=== PATIENT | female | born 1965 | race Caucasian/White ===

== ENCOUNTER 2017-04-29 07:19 | Outpatient (CLI) | payer OTHER ==
[2013-05-11 09:04] VITALS: BP 114/67
[2017-04-29 07:58] LABS: BASOPHILS % 0.8 (0.0-1.5); EOSINOPHILS % 3.7 % (0.0-6.8); MEAN CORPUSCULAR HEMOGLOBIN 32.7 pg (28.0-34.0); MEAN CORPUSCULAR VOLUME 94.2 fl (80.0-100.0); NEUTROPHILS # 3.3 # k/uL (1.4-7.7)
[2017-04-29 08:18] LABS: eGFR (African) > 60; eGFR (Non-African) > 60
[2017-04-29 20:41] LABS: IRON SERUM 124 ug/dL (37-145)
== END 2017-04-29 07:20 ==
LOC: LAB 07:19
PROVIDERS: ATTEND Nurse Practitioner Family
DX: E11.8 Type 2 diabetes mellitus with unspecified complications (principal); I10 Essential (primary) hypertension; R53.1 Weakness; D64.9 Anemia, unspecified; Z79.899 Other long term (current) drug therapy
CPT/HCPCS: 36415; 80053; 80061; 82607; 83036; 83540; 84439; 84443; 85025

== ENCOUNTER 2017-11-17 07:21 | Outpatient (CLI) | payer OTHER ==
[2013-05-11 09:04] VITALS: BP 114/67
[2017-11-17 08:39] LABS: BASOPHILS % 0.7 (0.0-1.5); EOSINOPHILS % 5.5 % (0.0-6.8); MEAN CORPUSCULAR HEMOGLOBIN 32.1 pg (28.0-34.0); MONOCYTES % 3.6 % (0.0-11.0); NEUTROPHILS # 3.4 # k/uL (1.4-7.7)
[2017-11-17 08:49] LABS: eGFR (African) > 60; eGFR (Non-African) > 60
[2017-11-17 19:41] LABS: IRON SERUM 89 ug/dL (37-145)
== END 2017-11-17 07:22 ==
LOC: LAB 07:21
PROVIDERS: ATTEND Nurse Practitioner Family
DX: E03.9 Hypothyroidism, unspecified (principal); E11.8 Type 2 diabetes mellitus with unspecified complications; R53.1 Weakness; D64.9 Anemia, unspecified; Z79.899 Other long term (current) drug therapy
CPT/HCPCS: 36415; 80053; 80061; 82607; 82728; 82746; 83036; 83540; 84439; 84443; 85025; 86140

== ENCOUNTER 2018-09-10 15:04 | Outpatient (CLI) | payer OTHER ==
[2013-05-11 09:04] VITALS: BP 114/67
--- NOTE | 2018-09-10 16:28 | Diagnostic Imaging Report ---
YIFAN NERI [facility] [id number] [facility].[address] 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 BRUSING IN 3RD, 4TH, AND 5TH DIGITS (Hx) Findings: 3 views of the left foot demonstrates articular degenerative spurring. No fracture or dislocation. Calcaneal spurs. No soft tissue swelling. No joint effusion. Impression: Articular degenerative changes. No acute appearing cortical abnormality. Electronically signed on Sep 10, 2018 3:50:05 PM PRINCIPAL SECURITY ARCHITECT by: Medhat REED
== END 2018-09-10 15:10 ==
LOC: RAD 15:04
PROVIDERS: ATTEND Physician Assistant
DX: M19.072 Primary osteoarthritis, left ankle and foot (principal); S99.922A Unspecified injury of left foot, initial encounter; W19.XXXA Unspecified fall, initial encounter
CPT/HCPCS: 73630

== ENCOUNTER 2019-06-14 08:03 | Outpatient (CLI) | payer BC ==
[2013-05-11 09:04] VITALS: BP 114/67
--- NOTE | 2019-06-16 10:09 | Diagnostic Imaging Report ---
ELVIS NICHOLAS [facility] [address] [facility] [address] [place] [address]. [id number] Report Submission Date: Jun 14, 2019 8:19:56 AM CDT Patient Study Name: ELIEL FIELDS Date: Jun 14, 2019 8:01:52 AM CDT Modality Type: DX Gender: F Description: FOOT 3 VIEWS OR MORE : 69 Institution: [facility] Physician: ELVIS NICHOLAS Exam: Left foot. History: Lateral pain. The examination is compared to study dated September 10, 2018. 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 A well corticated bony density adjacent to the cuboid bone may represent an accessory ossicle. No acute fracture is seen. No bony erosions are seen. Spurs off the plantar and posterior surface of the calcaneus is again identified. Soft tissue swelling over the foot and ankle is noted. Impression: Heel spurs. Degenerative changes. Soft tissue swelling. Electronically signed on Jun 14, 2019 8:19:56 AM CDT by: Rajinder REED
== END 2019-06-14 09:05 ==
LOC: RAD 08:03
PROVIDERS: ATTEND Podiatrist Foot & Ankle Surgery
DX: M79.672 Pain in left foot (principal); W22.03XA Walked into furniture, initial encounter; Y99.8 Other external cause status
CPT/HCPCS: 73630